=== PATIENT | male | born 1995 | race Hispanic/Latino ===

== ENCOUNTER 2018-09-29 00:37 | Emergency (ER) | payer OTHER ==
[2018-09-29 01:12] VITALS: RESP 16; TEMP 98.7
[2018-09-29] MEDS ORDERED: Lidocaine 2% Inj (20ml) ONE (01:42)
--- NOTE | 2018-09-29 02:54 | ED PDOC ---
HPI: Trauma/Fall - HPI Time Seen by Provider: 09/29/18 01:42 Chief Complaint (Nursing): Trauma Past Medical History Vital Signs: Last Vital Signs Temp 98.7 F 09/29/18 01:09 Pulse 89 09/29/18 01:09 Resp 16 09/29/18 01:09 BP 131/80 09/29/18 01:09 Pulse Ox 100 09/29/18 01:09 - Family History Family History: States: Unknown Family Hx - Home Medications Home Medications: Ambulatory Orders Medication Instructions Recorded Cephalexin [cephalexin] 500 mg PO QID #40 cap 09/29/18 - Allergies Allergies/Adverse Reactions: Allergies Allergy/AdvReac Type Severity Reaction Status Date / Time No Known Allergies Allergy Verified 09/29/18 01:12 Physical Exam - Reviewed Nursing Documentation Reviewed: Yes Vital Signs Reviewed: Yes - Physical Exam Appears: Positive for: Well, Non-toxic, No Acute Distress, Uncomfortable Head Exam: Negative for: ATRAUMATIC (2 cm horizontal laceration on left occiput; bleeding on presentation), NORMAL INSPECTION Skin: Positive for: Normal Color, Warm, Dry. Negative for: Pallor, Rash Eye Exam: Positive for: Normal appearance, PERRL. Negative for: Nystagmus, Periorbital swelling, Periorbital tenderness Neck: Positive for: Normal, Painless ROM, Supple. 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 Negative for: Motor/Sensory Deficits, Aphasia, Facial Droop - ECG O2 Sat by Pulse Oximetry: 100 Medical Decision Making Medical Decision Making: I: Head laceratoin P: Repair lac CT Head 02:48 CT Head Normal size of the ventricles and extra-axial spaces for the patient's age. Normal white matter tracts of the supratentorial brain. Normal basal ganglia and thalami. Normal brainstem. Normal cerebellum. There is no demonstrated extra-axial, intraparenchymal, or intraventricular hemorrhage. There are no findings of an acute ischemic infarction. Normal calvarium. There is no demonstrated fracture. Left parietal subgaleal soft tissue hematoma. Normal visualized paranasal sinuses. IMPRESSION: Normal unenhanced CT scan of the brain. Left parietal subgaleal soft tissue hematoma. Pt is stable for discharge and is requesting to go home; CT results exlained and pt informed to have surgical stables removed in 7 days. Rx keflex Disposition - Clinical Impression Clinical Impression: Concussion, Laceration of head - Disposition Disposition: Routine/Home Disposition Time: 03:15 Condition: STABLE Prescriptions: Cephalexin [cephalexin] 500 mg PO QID #40 cap Instructions: Concussion in Adults, Concussion, Adult (DC), Laceration Repair With [place] (DC) Forms: [employer] (Hungarian)
[2018-09-29 03:13] VITALS: BP 135/86; PULSE 82
[2018-09-29 03:14] VITALS: O2SAT 100
--- NOTE | 2018-09-29 10:17 | CT ---
Date of service: 09/29/2018 PROCEDURE: CT HEAD WITHOUT CONTRAST. HISTORY: s/p fall trauma COMPARISON: None available. TECHNIQUE: Axial computed tomography images were obtained through the head/brain without intravenous contrast. Supplemental Coronal and Sagittal projections created and reviewed. Radiation dose: Total exam DLP = 894.26 mGy-cm. This CT exam was performed using one or more of the following dose reduction techniques: Automated exposure control, adjustment of the mA and/or kV according to patient size, and/or use of iterative reconstruction technique. FINDINGS: HEMORRHAGE: No intracranial hemorrhage. BRAIN: No mass effect or edema. No atrophy or chronic microvascular ischemic changes. VENTRICLES: Unremarkable. No hydrocephalus. CALVARIUM: Unremarkable. PARANASAL SINUSES: Unremarkable as visualized. No significant inflammatory changes. MASTOID AIR CELLS: Unremarkable as visualized. No inflammatory changes. OTHER FINDINGS: Left posterior parietal cutaneous laceration with surgical yuki. No adjacent calvarial or underlying intracranial abnormality. IMPRESSION: No acute intracranial abnormalities. No significant findings to account for the clinical presentation. Concordant results (preliminary interpretation) provided by Drive. Procedure Completed: 02:10. Preliminary Report: Interpreted and electronically signed: 02:47. Final Interpretation: 10:13.
== END 2018-09-29 03:12 | disposition home or self-care (01) ==
LOC: H.ER 00:37
DX: S06.0X0A Concussion without loss of consciousness, initial encounter (principal); S01.01XA Laceration without foreign body of scalp, initial encounter; W19.XXXA Unspecified fall, initial encounter